=== PATIENT | male | born 1990 | race Hispanic/Latino ===

== ENCOUNTER 2018-08-25 00:36 | Emergency (ER) | payer SELFPAY ==
[2018-08-25] MEDS ORDERED: Ibuprofen 200 MG TAB ONE (00:58)
[2018-08-25] MEDS ORDERED: Cyclobenzaprine 10 MG TAB ONE (00:58)
--- NOTE | 2018-08-25 08:05 | RAD ---
RIGHT SHOULDER 3 VIEWS: INDICATION: Right shoulder pain after fall. COMPARISON: None. IMPRESSION: No acute fracture or subluxation is evident. Visualized right lung is clear. POS: [facility]
== END 2018-08-25 01:30 | disposition home or self-care (01) ==
LOC: SCSER 00:36
DX: S40.011A Contusion of right shoulder, initial encounter (principal); V89.9XXA Person injured in unspecified vehicle accident, initial encounter

== ENCOUNTER 2018-10-04 16:22 | Emergency (ER) | payer SELFPAY | END 2018-10-04 17:42 | disposition home or self-care (01) | LOC: SCSER 16:22 | DX: B35.4 Tinea corporis (principal); B35.6 Tinea cruris; F17.210 Nicotine dependence, cigarettes, uncomplicated | CPT/HCPCS: 99282 ==